=== PATIENT | male | born 1995 | race Two or more races ===

== ENCOUNTER 2024-05-31 09:19 | Emergency (ER) | payer OTHER ==
[~2024-05-31] VITALS: Ht 180.3 cm; Wt 77.1 kg
[2024-05-31] MEDS ORDERED: TOUJEO MAX300 UNIT/1 (09:45)
[2024-05-31] MEDS ORDERED: LANTUS SOL100 UNIT/1 (09:45)
[2024-05-31] MEDS ORDERED: HUMALOG100 UNIT/2 (09:45)
[2024-05-31] MEDS ORDERED: 0.9 % SODIUM CHLORIDE 1,000 ML IV STA (09:56)
[2024-05-31] MEDS ORDERED: INSULIN REGULAR, HUMAN 1,000 UNIT/10 ML UNITS IV ONE (10:00)
[2024-05-31 10:57] LABS: ABG PH 7.242 (7.35-7.45); ABG PO2 114.3 mmHg (80-100); ABG pCO2 25.2 mmHg (35-45); BASE EXCESS -14.8 mmol/l; BICARBONATE 10.6 mmol/l (23-25); SaO2 97.1 %; Tco2 11.4 mmol/l; allen test SATISFACTORY; o2 21 %; puncture site RADIAL RIGHT
[2024-05-31 10:57] LABS: HEMATOCRIT 46.9 % (39.0-48.0); HEMOGLOBIN 15.9 g/dL (13-16.00); MEAN CELL VOLUME 91.2 fL (80.0-100.00); MEAN CORPUSCULAR HEMOGLOBIN 30.8 pg (27.00-32.0); MEAN CORPUSCULAR HGB CONC 33.8 g/dl (32.0-36.0); PLATELET COUNT 274 K/uL (150-450); RED BLOOD COUNT 5.15 M/uL (4.00-6.00); RED CELL DISTRIBUTION WIDTH 14.1 % (11.5-14.5)
[2024-05-31 13:04] LABS: CALCIUM 7.3 mg/dL (8.5-10.1); CREATININE SERUM 0.87 mg/dL (0.70-1.30); GFR 103.74
[2024-05-31 13:08] LABS: POTASSIUM 4.85 mEq/L (3.5-5.1)
[2024-05-31 14:11] LABS: URINE APPEARANCE Clear; URINE BILIRRUBIN Negative (NEGATIVE); URINE BLOOD Negative; URINE COLOR Yellow; URINE LEUKOCYTE Negative; URINE NITRATE Negative; URINE PROTEIN Trace (NEGATIVE); URINE UROBILINOGEN 0.2 E.U./dl
[2024-05-31 14:50] LABS: URINE BACTERIA 3.6 uL (0.0-1933); URINE EPITHELIAL CELLS 0.6 uL (0.0-38.8); URINE GLUCOSE >=1000 MG/DL (NEGATIVE); URINE KETONE >=160 (NEGATIVE); URINE RBC 0.7 uL (0.0-20.8); URINE WBC 0.3 uL (0.0-23.2)
[2024-05-31 16:30] LABS: ABG PH 7.321 (7.35-7.45); ABG PO2 124.3 mmHg (80-100); ABG pCO2 23.4 mmHg (35-45)
[2024-05-31 16:31] LABS: BASE EXCESS -12.1 mmol/l; BICARBONATE 11.8 mmol/l (23-25); SaO2 98.2 %; Tco2 12.5 mmol/l; allen test SATISFACTORY; o2 21 %; puncture site RADIAL LEFT
== END 2024-05-31 16:58 | disposition home or self-care (01) ==
LOC: ER 09:22
PROVIDERS: Emergency Medicine
DX: E11.65 Type 2 diabetes mellitus with hyperglycemia (principal); Z79.4 Long term (current) use of insulin

== ENCOUNTER 2024-11-08 14:01 | Inpatient (IN) | payer OTHER ==
[~2024-11-08] VITALS: Ht 180.3 cm; Wt 74.4 kg
[~2024-11-08 14:01] MED LIST: HUMALOG100 UNIT/2; LANTUS SOL100 UNIT/1; TOUJEO MAX300 UNIT/1
--- NOTE | 2024-11-08 15:47 | NUR ---
PTE ALERTA Y ORIRNTADO X3 VERBALIZA TENER LA AZUCAR CIARRA SE LE RELIZA DEXTRO 416 MG DL CUENTA CON VOMITOS DOLOR DE ARTIE, SE LE ROSEANN /V Y SE UBICA
[2024-11-08 16:00] VITALS: BP 138/61; O2SAT 99
[2024-11-08] MEDS ORDERED: 0.9 % SODIUM CHLORIDE 2,000 ML IV ONE (16:15)
[2024-11-08] MEDS ORDERED: INSULIN REGULAR, HUMAN 1,000 UNIT/10 ML UNITS IV ONE (16:30)
[2024-11-08] MEDS ORDERED: ONDANSETRON HCL 2 MG/ML VIAL IV ONE (16:30)
[2024-11-08] MEDS ORDERED: FAMOTIDINE/PF 20 MG/2 ML VIAL IV ONE (16:30)
[2024-11-08 16:55] LABS: BASO % 0.3 % (0.1-1.2); EOS # 0.01 (0.04-0.54); EOS % 0.0 % (0.7-7.0); LYMPH # 1.13 (1.18-3.74); LYMPH % 5.5 % (19.3-53.1); MEAN PLATELET VOLUME 10.10 fl (9.4-12.4); MONO # 0.77 (0.24-0.82); MONO % 3.8 % (4.7-12.5); NEUT # 18.29 (1.56-6.13); NEUT % 89.9 % (34.0-71.1); RED CELL DISTRIBUTION WIDTH 12.4 % (11.6-14.4)
[2024-11-08 17:00] VITALS: BP 119/67; O2SAT 99
--- NOTE | 2024-11-08 17:16 | NUR ---
SE ORIENTA SOBRE TRATAMIENTO MEDICO EL CUAL INDICA ENTENDER. SE REALIZA EXTRACCION DE MUESTRAS BAJO MEDIDAS ASEPTICAS Y PEDIENTE A ENTREGAR U/A. SE ADMINISTRAN MEDICAMENTOS ALEJANDRO ORDEN MEDICA.
[2024-11-08 17:17] LABS: INR 1.05
[2024-11-08 17:22] LABS: ALT/SGPT 55.0 U/L (12-78); AST/SGOT 18.0 U/L (15-37); BILIRUBIN TOTAL 0.75 mg/dL (0.3-1.2); BUN CREA RATIO 14.0 (7.0-25.0); CREATININE SERUM 1.18 mg/dL (0.70-1.30); GFR 72.48; GLOBULINA 3.8 G/DL (2.4-3.5)
[2024-11-08 17:34] LABS: OSMOLALITY SERUM 290.0 MOSM/KG (275-295)
[2024-11-08] MEDS ORDERED: SODIUM BICARBONATE 1 MEQ/ML DISP.SYRIN 50ML IV ONE (17:45)
[2024-11-08 17:56] LABS: GLUCOSE FASTING 406.0 mg/dL (65-100)
[2024-11-08 18:00] VITALS: BP 113/66; O2SAT 99
[2024-11-08] MEDS ORDERED: 0.9 % SODIUM CHLORIDE 1,000 ML IV SCH (18:15)
[2024-11-08] MEDS ORDERED: INSULIN REGULAR, HUMAN 100 UNITS in 0.9 % SODIUM CHLORIDE 100 ML IV SCH (18:15)
[2024-11-08 19:00] VITALS: BP 125/62; O2SAT 98
[2024-11-08 19:36] LABS: ABG PH 7.105 (7.35-7.45); ABG PO2 119.2 mmHg (80-100); BICARBONATE 6.3 mmol/l (23-25)
[2024-11-08 19:37] LABS: o2 21 %
[2024-11-08 20:00] VITALS: BP 125/57; O2SAT 99
[2024-11-08] MEDS ORDERED: POTASSIUM CHLORIDE IV SCH (20:45)
[2024-11-08] MEDS ORDERED: D5W IV SCH (20:45)
[2024-11-08 20:57] LABS: GLUCOSE FASTING 271.0 mg/dL (65-100); OSMOLALITY SERUM 292.0 MOSM/KG (275-295)
[2024-11-08 20:58] LABS: ALT/SGPT 49.0 U/L (12-78); AST/SGOT 14.0 U/L (15-37); BUN CREA RATIO 14.0 (7.0-25.0); CREATININE SERUM 1.07 mg/dL (0.70-1.30); GFR 81.15
[2024-11-08 21:00] VITALS: BP 151/56; O2SAT 99
[2024-11-08] MEDS ORDERED: FAMOTIDINE/PF 20 MG/2 ML VIAL IV SCH (21:00)
[2024-11-08 21:01] LABS: BILIRUBIN TOTAL 0.71 mg/dL (0.3-1.2); GLOBULINA 3.7 G/DL (2.4-3.5)
[2024-11-08 21:15] LABS: COVID-19 AG NEGATIVE (NEGATIVE)
[2024-11-08] MEDS ORDERED: POTASSIUM CHLORIDE/D5-0.45NACL 20 MEQ/1,000 ML PIGGYBAG IV ONE (21:15)
[2024-11-08] MEDS ORDERED: ONDANSETRON HCL 2 MG/ML VIAL IV PRN (21:30)
[2024-11-08 21:51] LABS: URINE APPEARANCE Clear; URINE BILIRRUBIN Negative (NEGATIVE); URINE BLOOD Trace; URINE COLOR Yellow; URINE LEUKOCYTE Negative; URINE NITRATE Negative; URINE PROTEIN 30 (NEGATIVE); URINE UROBILINOGEN 0.2 E.U./dl
[2024-11-08 21:56] LABS: URINE BACTERIA 0 uL (0.0-1933); URINE CAST 0.14 uL (0.0-1.40); URINE EPITHELIAL CELLS 0.4 uL (0.0-38.8); URINE GLUCOSE >=1000 MG/DL (NEGATIVE); URINE KETONE >=160 (NEGATIVE); URINE RBC 0.2 uL (0.0-20.8); URINE WBC 0.6 uL (0.0-23.2)
[2024-11-09] VITALS (7 sets, daily range): BP systolic 121–129; BP diastolic 50–66; O2SAT 98–100
[2024-11-09 00:52] LABS: ALT/SGPT 45.0 U/L (12-78); AST/SGOT 11.0 U/L (15-37); BILIRUBIN TOTAL 0.81 mg/dL (0.3-1.2); BUN CREA RATIO 12.0 (7.0-25.0); CREATININE SERUM 1.1 mg/dL (0.70-1.30); GFR 78.6; GLOBULINA 3.7 G/DL (2.4-3.5); OSMOLALITY SERUM 290.0 MOSM/KG (275-295)
[2024-11-09 00:55] LABS: GLUCOSE FASTING 225.0 mg/dL (65-100)
[2024-11-09] MEDS ORDERED: ONDANSETRON HCL 2 MG/ML VIAL IV SCH (01:00)
[2024-11-09 05:48] LABS: ALT/SGPT 40.0 U/L (12-78); AST/SGOT 10.0 U/L (15-37); BILIRUBIN TOTAL 1.03 mg/dL (0.3-1.2); BUN CREA RATIO 13.0 (7.0-25.0); CREATININE SERUM 0.99 mg/dL (0.70-1.30); GFR 88.76; GLOBULINA 3.0 G/DL (2.4-3.5); OSMOLALITY SERUM 292.0 MOSM/KG (275-295)
[2024-11-09 06:00] LABS: GLUCOSE FASTING 226.0 mg/dL (65-100)
[2024-11-09] MEDS ORDERED: ENOXAPARIN SODIUM 40 MG/0.4 ML SYRINGE SUBCUTANEO SCH (09:00)
[2024-11-09 11:00] LABS: ALT/SGPT 39.0 U/L (12-78); AST/SGOT 9.0 U/L (15-37); BILIRUBIN TOTAL 1.15 mg/dL (0.3-1.2); BUN CREA RATIO 14.0 (7.0-25.0); CREATININE SERUM 0.94 mg/dL (0.70-1.30); GFR 94.23; GLOBULINA 2.9 G/DL (2.4-3.5); OSMOLALITY SERUM 293.0 MOSM/KG (275-295)
[2024-11-09 11:01] LABS: GLUCOSE FASTING 205.0 mg/dL (65-100)
[2024-11-09 14:57] LABS: ALT/SGPT 36.0 U/L (12-78); AST/SGOT 11.0 U/L (15-37); BILIRUBIN TOTAL 1.26 mg/dL (0.3-1.2); BUN CREA RATIO 13.0 (7.0-25.0); CREATININE SERUM 0.93 mg/dL (0.70-1.30); GFR 95.4; GLOBULINA 2.6 G/DL (2.4-3.5); GLUCOSE FASTING 284.0 mg/dL (65-100); OSMOLALITY SERUM 295.0 MOSM/KG (275-295)
[2024-11-09] MEDS ORDERED: INSULIN LISPRO 1,000 UNIT/10 ML UNITS SUBCUTANEO SCH (17:00)
[2024-11-09] MEDS ORDERED: INSULIN GLARGINE,HUM.REC.ANLOG 1,000 UNITS/10 ML UNITS SUBCUTANEO SCH (17:00)
[2024-11-09] MEDS ORDERED: INSULIN LISPRO 1,000 UNIT/10 ML UNITS SUBCUTANEO PRN (20:45)
[2024-11-09] MEDS ORDERED: DEXTROSE 50 % IN WATER 0.5 G/ML VIAL IV PRN (20:45)
[2024-11-09 21:30] LABS: BASO % 0.4 % (0.1-1.2); EOS # 0.08 (0.04-0.54); EOS % 1.1 % (0.7-7.0); LYMPH # 1.91 (1.18-3.74); LYMPH % 26.6 % (19.3-53.1); MEAN PLATELET VOLUME 9.50 fl (9.4-12.4); MONO # 0.57 (0.24-0.82); MONO % 7.9 % (4.7-12.5); NEUT # 4.58 (1.56-6.13); NEUT % 63.7 % (34.0-71.1); RED CELL DISTRIBUTION WIDTH 12.9 % (11.6-14.4)
[2024-11-09 22:05] LABS: ALT/SGPT 34.0 U/L (12-78); AST/SGOT 16.0 U/L (15-37); BILIRUBIN TOTAL 1.08 mg/dL (0.3-1.2); BUN CREA RATIO 13.0 (7.0-25.0); CREATININE SERUM 0.93 mg/dL (0.70-1.30); GFR 95.4; GLOBULINA 2.3 G/DL (2.4-3.5)
[2024-11-09 22:13] LABS: GLUCOSE FASTING 252.0 mg/dL (65-100); OSMOLALITY SERUM 299.0 MOSM/KG (275-295)
[2024-11-10] VITALS: BP 122/58; O2SAT 98
[2024-11-10 04:08] VITALS: BP 111/65; O2SAT 97
[2024-11-10 06:55] LABS: ALT/SGPT 38.0 U/L (12-78); AST/SGOT 24.0 U/L (15-37); BILIRUBIN TOTAL 1.12 mg/dL (0.3-1.2); BUN CREA RATIO 15.0 (7.0-25.0); CREATININE SERUM 0.74 mg/dL (0.70-1.30); GFR 124.19; GLOBULINA 2.6 G/DL (2.4-3.5); GLUCOSE FASTING 80.0 mg/dL (65-100); OSMOLALITY SERUM 295.0 MOSM/KG (275-295)
[2024-11-10 07:34] VITALS: BP 118/60; O2SAT 99
[2024-11-10] MEDS ORDERED: INSULIN LISPRO 1,000 UNIT/10 ML UNITS SUBCUTANEO SCH (08:00)
[2024-11-10] MEDS ORDERED: POTASSIUM PHOS,M-BASIC-D-BASIC 15 MM in 0.9 % SODIUM CHLORIDE 250 ML IV SCH (09:00)
[2024-11-10] MEDS ORDERED: SODIUM CHLORIDE 0.45 % 1,000 ML IV SCH (10:15)
[2024-11-10 12:01] VITALS: BP 132/70; O2SAT 99
[2024-11-10] MEDS ORDERED: MAGNESIUM SULFATE IN WATER 50 ML IV NR (13:00)
[2024-11-10 15:44] VITALS: BP 127/62; O2SAT 98
[2024-11-11 02:26] VITALS: BP 116/70; O2SAT 97
[2024-11-11 07:54] LABS: ALT/SGPT 34.0 U/L (12-78); AST/SGOT 21.0 U/L (15-37); BILIRUBIN TOTAL 1.17 mg/dL (0.3-1.2); BUN CREA RATIO 13.0 (7.0-25.0); CREATININE SERUM 0.45 mg/dL (0.70-1.30); GFR 220.48; GLOBULINA 2.3 G/DL (2.4-3.5); GLUCOSE FASTING 172.0 mg/dL (65-100); OSMOLALITY SERUM 289.0 MOSM/KG (275-295)
[2024-11-11 10:49] VITALS: BP 128/65; O2SAT 99
[2024-11-11] MEDS ORDERED: INSULIN GL300 UNIT/2 SUBCUTANEO (11:22)
[2024-11-11] MEDS ORDERED: HUMALOG KW200 UNIT/1 SUBCUTANEO (11:26)
== END 2024-11-11 12:57 | disposition home or self-care (01) | DRG 639 ==
LOC: ER 14:01 → ICU-2 19:01 → ICU 19:01 → MEDJ 11-10 18:28
PROVIDERS: General Practice; Internal Medicine Endocrinology, Diabetes & Metabolism; ADMIT Internal Medicine; ATTEND Internal Medicine
PROC: 4A12X4Z Monitoring of Cardiac Electrical Activity, External Approach (ICD-10-PCS; principal; 2024-11-08)
PROC: 3E0F7SF Introduction of Other Gas into Respiratory Tract, Via Natural or Artificial Opening (ICD-10-PCS; 2024-11-09)
DX: E10.10 Type 1 diabetes mellitus with ketoacidosis without coma (principal); E86.0 Dehydration; E87.5 Hyperkalemia; D72.829 Elevated white blood cell count, unspecified; Z79.4 Long term (current) use of insulin